=== PATIENT | male | born 1950 | race Caucasian/White ===

== ENCOUNTER 2016-11-01 23:32 | Emergency (ER) | payer OTHER, SELFPAY ==
[~2016-11-01] VITALS: Ht 175.3 cm; Wt 86.0 kg
[2016-11-01 23:33] VITALS: BP 126/82
== END 2016-11-02 01:28 | disposition home or self-care (01) ==
LOC: ED 23:59
DX: S63.655A Sprain of metacarpophalangeal joint of left ring finger, initial encounter (principal); G89.11 Acute pain due to trauma; W23.0XXA Caught, crushed, jammed, or pinched between moving objects, initial encounter; Y93.89 Activity, other specified; Y92.69 Other specified industrial and construction area as the place of occurrence of the external cause; Y99.8 Other external cause status
CPT/HCPCS: 99284